=== PATIENT | female | born 2005 | race Caucasian/White ===

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

== ENCOUNTER 2025-03-03 21:10 | Inpatient (IN) | payer BC, MEDICAID ==
[2025-03-03] MEDS ORDERED: Sodium Chloride 0.9% 2.5 ML Syringe FLUSH PRN (21:31)
[2025-03-03] MEDS ORDERED: Ondansetron 4 MG/2 ML SDV IVPUSH PRN (21:31)
[2025-03-03] MEDS ORDERED: Water For Irrigation,Sterile 1,000 ML Container IRR PRN (21:31)
[2025-03-03] MEDS ORDERED: Sodium Chloride 0.9% 10 ML Syringe FLUSH PRN (21:31)
[2025-03-03] MEDS ORDERED: Carboprost Tromethamine 250 MCG/1 mL Vial IM PRN (21:31)
[2025-03-03] MEDS ORDERED: Terbutaline 1 MG/ML SDV SUBCUT PRN (21:31)
[2025-03-03] MEDS ORDERED: Oxytocin/0.9 % Sodium Chloride 30 UNIT/500 ML BAG IV SCH (21:45)
[2025-03-03 22:00] LABS: MEAN PLATELET VOLUME 13.6 fL (9.4-12.3); NRBC ABSOLUTE 0.00 K/uL (0.00-0.03); NRBC PERCENT 0.0 /100WBC (0.0-0.2); PLATELET COUNT,PLT 169 K/uL (150-400); RED BLOOD CELL COUNT 3.65 M/uL (4.10-5.30); WHITE BLOOD CELL COUNT,WBC 9.64 K/uL (4.5-13.5)
[2025-03-03 22:16] LABS: BLOOD UREA NITROGEN,BUN 11.0 mg/dL (7.0-18.0); CARBON DIOXIDE,CO2 20.7 mmol/L (21.0-32.0); CHLORIDE,CL 105.0 mmol/L (98-107); CREATININE 0.7 mg/dL (0.6-1.0); EST CRCL DRUG DOSING (CG) 139.79 mL/min; GLUCOSE RANDOM 107.0 mg/dL (74-106); POTASSIUM,K 4.2 mmol/L (3.5-5.1); SODIUM,NA 136.0 mmol/L (136-145)
[2025-03-03 22:17] LABS: ESTIMATED GFR 128.0 mL/min (>60)
[2025-03-03] MEDS: Lactated Ringers 1,000 ML IV SCH (22:30)
[2025-03-03] MEDS: Misoprostol 25 MCG (1/4 of 100 MCG) Tab VAG PRN (22:30)
[2025-03-03] MEDS ORDERED: 50% Dextrose in Water 50 ML Syringe IVPUSH PRN (23:44)
[2025-03-04] MEDS: Oxytocin/0.9 % Sodium Chloride 30 UNIT/500 ML BAG IV SCH (10:35)
[2025-03-04] MEDS: Nalbuphine 10 MG/1 ML Vial IVPUSH PRN (14:41)
[2025-03-04] MEDS: Ropivacaine HCl/PF 400 MG in Premix Bag 1 BAG EPIDUR SCH (17:30)
[2025-03-04] MEDS ORDERED: ePHEDrine 50 MG/ML SDV IVPUSH PRN (17:50)
[2025-03-04] MEDS ORDERED: dexmedeTOMIDine HCl 200 MCG/2 ML SDV EPIDUR SCH (18:00)
[2025-03-04 22:59] LABS: PH,UMBILICAL ARTERIAL 7.1 (7.18-7.38); PH,UMBILICAL VENOUS 7.162 (7.25-7.45)
[2025-03-05] MEDS: Lanolin 100% Cream 7 GM Tube TOP PRN (01:41)
[2025-03-05] MEDS: Witch Hazel Medicated Pads 40/Jar TOP PRN (01:41)
[2025-03-05] MEDS: Benzocaine/Menthol 20%-0.5% Spray 78 GM Cannister TOP PRN (01:42)
[2025-03-05 06:07] LABS: BLOOD UREA NITROGEN,BUN 9.0 mg/dL (7.0-18.0); CARBON DIOXIDE,CO2 22.2 mmol/L (21.0-32.0); CHLORIDE,CL 106.0 mmol/L (98-107); CREATININE 0.7 mg/dL (0.6-1.0); EST CRCL DRUG DOSING (CG) 139.79 mL/min; GLUCOSE RANDOM 111.0 mg/dL (74-106); POTASSIUM,K 4.1 mmol/L (3.5-5.1); SODIUM,NA 138.0 mmol/L (136-145)
[2025-03-05 06:17] LABS: ESTIMATED GFR 128.0 mL/min (>60)
[2025-03-05] MEDS ORDERED: 50% Dextrose in Water 50 ML Syringe IVPUSH PRN ×2 (11:05→11:09)
[2025-03-05] MEDS: Insulin Glargine,Human Rec. Analog 100 Units/ML 3 ML Pen SUBCUT SCH (21:08)
[2025-03-06] MEDS: Ropivacaine HCl/PF 200 ML ONE (08:06)
[2025-03-06] MEDS: dexmedeTOMIDine HCl 200 MCG/2 ML SDV ONE (08:06)
== END 2025-03-06 22:53 | disposition home or self-care (01) | DRG 560 ==
LOC: MW.OB 21:10 → OBSVTOIN 03-04 21:23 → MW.OB 03-05 00:40
PROVIDERS: ADMIT Obstetrics & Gynecology; ATTEND Obstetrics & Gynecology
PROC: 10E0XZZ Delivery of Products of Conception, External Approach (ICD-10-PCS; principal; 2025-03-04)
PROC: 0KQM0ZZ Repair Perineum Muscle, Open Approach (ICD-10-PCS; 2025-03-04)
PROC: 3E0R3BZ Introduction of Anesthetic Agent into Spinal Canal, Percutaneous Approach (ICD-10-PCS; 2025-03-04)
PROC: 3E033VJ Introduction of Other Hormone into Peripheral Vein, Percutaneous Approach (ICD-10-PCS; 2025-03-04)
PROC: 10907ZC Drainage of Amniotic Fluid, Therapeutic from Products of Conception, Via Natural or Artificial Opening (ICD-10-PCS; 2025-03-04)
DX: O24.12 Pre-existing type 2 diabetes mellitus, in childbirth (principal); Z3A.37 37 weeks gestation of pregnancy; Z37.0 Single live birth; O99.824 Streptococcus B carrier state complicating childbirth; O99.214 Obesity complicating childbirth; O70.1 Second degree perineal laceration during delivery; O98.52 Other viral diseases complicating childbirth; Z79.82 Long term (current) use of aspirin; Z79.84 Long term (current) use of oral hypoglycemic drugs; Z79.899 Other long term (current) drug therapy; O99.02 Anemia complicating childbirth
CPT/HCPCS: 36415; 51701; 59409; 80048; 82803; 85014; 85018; 85027; 86592; 86850; 86900; 86901; A9270-GY; J0290; J0665; J1815-GY; J2300; J2590; J2795; J7042; J7120